=== PATIENT | female | born 1945 | race Caucasian/White ===

== ENCOUNTER 2017-08-07 10:14 | Outpatient (CLI) | payer OTHER | END 2017-08-07 10:32 | disposition home or self-care (01) | LOC: MAMO-SONO 10:14 | DX: Z12.31 Encounter for screening mammogram for malignant neoplasm of breast (principal); R92.2 Inconclusive mammogram; N60.19 Diffuse cystic mastopathy of unspecified breast; N64.4 Mastodynia ==

== ENCOUNTER 2017-08-07 12:34 | Outpatient (CLI) | payer OTHER | END 2017-08-07 13:33 | disposition home or self-care (01) | LOC: NUCLEAR 12:34 | DX: N95.1 Menopausal and female climacteric states (principal); M85.89 Other specified disorders of bone density and structure, multiple sites; M80.00XA Age-related osteoporosis with current pathological fracture, unspecified site, initial encounter for fracture; M81.0 Age-related osteoporosis without current pathological fracture; M85.88 Other specified disorders of bone density and structure, other site ==

== ENCOUNTER 2018-03-23 11:47 | Outpatient (CLI) | payer OTHER | END 2018-03-23 12:05 | disposition home or self-care (01) | LOC: SONOGRAMA 11:47 | DX: Z78.0 Asymptomatic menopausal state (principal); Z78.9 Other specified health status; N95.1 Menopausal and female climacteric states; N60.11 Diffuse cystic mastopathy of right breast; N60.12 Diffuse cystic mastopathy of left breast; N64.4 Mastodynia; R92.2 Inconclusive mammogram; Z12.31 Encounter for screening mammogram for malignant neoplasm of breast ==